=== PATIENT | male | born 1990 | race Two or more races ===

== ENCOUNTER 2019-08-15 15:03 | Emergency (ER) | payer SELFPAY ==
[~2019-08-15] VITALS: Ht 170.2 cm; Wt 100.7 kg
[2019-08-15 15:06] VITALS: BP 144/66
== END 2019-08-15 15:40 | disposition home or self-care (01) ==
LOC: ED 15:10
DX: S29.012A Strain of muscle and tendon of back wall of thorax, initial encounter (principal); K21.9 Gastro-esophageal reflux disease without esophagitis; X58.XXXA Exposure to other specified factors, initial encounter; Y93.89 Activity, other specified; Y92.89 Other specified places as the place of occurrence of the external cause; Y99.8 Other external cause status
CPT/HCPCS: 99281

== ENCOUNTER 2020-07-07 23:19 | Emergency (ER) | payer SELFPAY ==
[~2020-07-07] VITALS: Ht 170.2 cm; Wt 97.6 kg
[2020-07-08] MEDS ORDERED: ASPIRIN 81 MG TABLET CHEW PO ONE (00:30)
[2020-07-08 00:34] LABS: BASOPHILS % (AUTO) 1 % (0-1); EOSINOPHILS % (AUTO) 2 % (1-7); LYMPHOCYTES % (AUTO) 45 % (22-44); MEAN CORPUSCULAR HEMOGLOBIN 31.6 pg (27.5-34.5); MEAN PLATELET VOLUME 7.2 fL (7.4-10.4); MONOCYTES % (AUTO) 10 % (2-9); NEUTROPHILS % (AUTO) 42 % (42-75); PLATELET COUNT 392 x10^3/uL (130-400); RED BLOOD COUNT 5.21 x10^6/uL (4.38-5.82); RED CELL DISTRIBUTION WIDTH 13.3 % (9.4-14.8)
[2020-07-08] MEDS ORDERED: ASPIRIN 81 MG TABLET CHEW ONE (00:35)
[2020-07-08 00:36] LABS: MD NO
[2020-07-08 00:37] VITALS: BP 142/93
[2020-07-08 00:47] LABS: ALANINE AMINOTRANSFERASE 45 U/L (12-78); ANION GAP 10 mmol/L (5-15); CALCIUM 8.6 mg/dL (8.5-10.1); CHLORIDE 105 mmol/L (98-107); CREATININE 0.93 mg/dL (0.7-1.3)
[2020-07-08 00:51] LABS: ALKALINE PHOSPHATASE 82 U/L (45-117); BILIRUBIN,TOTAL 1.1 mg/dL (0.2-1.0); TOTAL PROTEIN 8.3 g/dL (6.4-8.2); TROPONIN I < 0.015 ng/mL (0.000-0.045)
== END 2020-07-08 01:35 | disposition home or self-care (01) ==
LOC: ED 07-08 01:00
DX: F10.10 Alcohol abuse, uncomplicated (principal); R07.89 Other chest pain; F14.10 Cocaine abuse, uncomplicated; R11.0 Nausea; R05 Cough; F17.210 Nicotine dependence, cigarettes, uncomplicated; Y90.0 Blood alcohol level of less than 20 mg/100 ml
CPT/HCPCS: 36415; 71045; 80053; 84484; 85025; 93005; 99285